=== PATIENT | male | born 1940 | race Two or more races ===

== ENCOUNTER 2018-06-03 20:17 | Emergency (ER) | payer SELFPAY ==
[~2018-06-03] VITALS: Ht 180.3 cm; Wt 77.0 kg
[2018-06-03] MEDS ORDERED: ACETAMINOPHEN 325MG TABLET PO ONE (23:45)
[2018-06-04 02:31] VITALS: BP 130/72
== END 2018-06-04 02:31 | disposition home or self-care (01) ==
LOC: ER 20:17
DX: M79.602 Pain in left arm (principal); R22.0 Localized swelling, mass and lump, head
CPT/HCPCS: 70486; 73090; 73110; 73130; 99284